=== PATIENT | female | born 1960 | race Caucasian/White ===

== ENCOUNTER 2018-06-13 08:59 | Emergency (ER) | payer BC ==
[~2018-06-13] VITALS: Ht 157.5 cm; Wt 97.1 kg
[~2018-06-13 08:59] MED LIST: BACTRIM DS TAB1 EACH PO; CARAFATE1 GM; CLONIDINE HCL0.1 MG PO; NORCO 5-325 TA1 EACH PO; PANTOPRAZOLE SO40 MG PO; PROTONIX20 MG; PROTONIX40 MG/ML; VESICARE5 MG PO; VICODIN 5-5001 EACH; ZOFRAN ODT4 MG
--- OUTSIDE RECORDS SUMMARY | 2018-06-13 09:03 | XMS REPORT | Clinical Summary ---
Author Author [facility] Organization [facility] Address Unknown Phone Unavailable Care Team Providers Care Drum Sander Offbearer Name Role Phone Provider, Unknown PCP Unavailable Allergies Comments Active Allergy Reactions Severity Noted Date MALIGNANT HYPERTHERMIA Anesthetics - Amide Type 03/07/2018 Povidone-Iodine 03/07/2018 STERI TAPE Other 03/07/2018 Medications End Date Status Medication Sig Dispensed Refills Start Date Active pantoprazole (PROTONIX) TAKE 1 TABLET 0 40 MG EC tablet ONCE A DAY 8 ORALLY Active cholecalciferol, vitamin Take 1,000 0 D3, (VITAMIN D3 ORAL) Units by mouth daily. 03/07/2019 Active desonide (DESOWEN) 0.05 % Apply 60 g 2 cream topically 2 8 (two) times a day. Active Problems Problem Noted Date Family history of breast cancer 03/07/2018 Breast mass 03/07/2018 Intertriginous candidiasis 03/07/2018 Encounters Care Team Description Date Type Specialty Daniel Orozco MD Well woman exam with routine gynecological exam (Primary Dx); Breast cancer screening; Screening for osteoporosis; Breast mass; Intertriginous candidiasis; Special screening examination for human papillomavirus (HPV) 03/07/2018 Office Visit Obstetrics and Gynecology after 06/12/2017 Family History Medical History Relation Name Comments Malig Hyperthermia Father Kidney cancer Maternal Grandfather Breast cancer Sister Relation Name Status Comments Father MALIG HYPERTHERMIA (Age 38) Maternal Grandfather (Age 85) Sister Alive ONSET AGE 40 Social History Date Tobacco Use Types Packs/Day Years Used Never Smoker Smokeless Tobacco: Never Used Alcohol Use Drinks/Week oz/Week Comments Yes 1 Glasses of 0.6 wine Sex Assigned at Date Recorded Not on file Industry Job Start Date Occupation Not on file Not on file Not on file Travel End Travel History Travel Start No recent travel history available. Last Filed Vital Signs Time Taken Vital Sign Reading 03/07/2018 10:24 AM CDT Blood Pressure 145/95 03/07/2018 10:24 AM CDT Pulse 60 - Temperature - - Respiratory Rate - - Oxygen Saturation - - Inhaled Oxygen - Concentration 03/07/2018 10:24 AM CDT Weight 101 kg (223 lb 9.6 oz) 03/07/2018 10:24 AM CDT Height 160 cm (5' 3") 03/07/2018 10:24 AM CDT Body Mass Index 39.61 Plan of Treatment Health Maintenance Due Date Last Done Comments CERVICAL CANCER SCREENING 1983 COLON CANCER SCREENING 2012 SHINGLES VACCINES ( of 2012 2) INFLUENZA VACCINE 01/19/2018 BREAST CANCER SCREENING 06/26/2018 06/26/2016 Procedures Comments Procedure Name Priority Date/Time Associated Diagnosis THINPREP TIS PAP Routine 03/07/2018 Well woman exam with 10:15 AM CDT routine gynecological exam after 06/12/2017 Results * THINPREP TIS PAP (03/07/2018 10:15 AM CDT) Specimen Swab Narrative Performed At Performing Organization Address City/State/Zipcode Phone Number EXTERNAL LAB NON-INTERFACED after 06/12/2017 Insurance Payer Benefit Subscriber ID Type Phone Address Plan / Group BCBS BCBS xxxxxxxxxxxx PPO CHOICE PPO/[place] PPO Advance Directives Patient has advance care planning documents on file. For more information, johnny lazcano contact: Rajesh Dodge [address] [place] [address]
--- NOTE | 2018-06-13 09:34 | Diagnostic Imaging Report ---
EXAMINATION: CXR 2 VIEW - HOPD INDICATION: Cough. Fever COMPARISON: None FINDINGS: TUBES and LINES: None. LUNGS: Lungs are well inflated. Perihilar peribronchial hazy opacity could be due to bronchitis. There is no evidence of pneumonia or pulmonary edema. PLEURA: No pleural effusion or pneumothorax. HEART AND MEDIASTINUM: The cardiomediastinal silhouette is unremarkable. BONES AND SOFT TISSUES: No acute osseous lesion. Soft tissues are unremarkable. UPPER ABDOMEN: No free air under the diaphragm. IMPRESSION: Perihilar peribronchial hazy opacity could be due to bronchitis. Signed by: Dr. Jerry Mina M.D. on 06/13/2018 9:31 AM
== END 2018-06-13 09:26 | disposition home or self-care (01) ==
LOC: FSED 08:59
DX: R05 Cough (principal); J20.8 Acute bronchitis due to other specified organisms
CPT/HCPCS: 71046; 99283

== ENCOUNTER 2022-10-17 11:02 | Emergency (ER) | payer OTHER, BC ==
[~2022-10-17] VITALS: Ht 162.6 cm; Wt 110.0 kg
[2022-10-17] MEDS ORDERED: VITAMIN D3250 MCG (11:36)
[2022-10-17] MEDS ORDERED: PROVENTIL HFA6.7 GM INH (12:27)
[2022-10-17] MEDS ORDERED: PREDNISONE20 MG PO (12:27)
[2022-10-17] MEDS ORDERED: ALBUTEROL/IPRATROPIUM 3 ML NEB ONE (12:30)
[2022-10-17] MEDS ORDERED: ALBUTEROL/IPRATROPIUM 3 ML NEB NEB ONE (12:30)
[2022-10-17] MEDS ORDERED: PREDNISONE 20 MG TAB PO ONE (12:30)
== END 2022-10-17 12:53 | disposition home or self-care (01) ==
LOC: FSED 11:19
DX: R05.9 Cough, unspecified (principal); J21.9 Acute bronchiolitis, unspecified; K21.9 Gastro-esophageal reflux disease without esophagitis; E66.9 Obesity, unspecified; Z20.822 Contact with and (suspected) exposure to COVID-19
CPT/HCPCS: 71046; 99283; J7512; U0002

== ENCOUNTER 2024-07-05 18:29 | Emergency (ER) | payer OTHER, BC ==
[~2024-07-05] VITALS: Ht 160 cm; Wt 105.0 kg
[~2024-07-05 18:29] MED LIST changes: +CLEOCIN HCL300 MG PO; +PREDNISONE20 MG PO; +PROVENTIL HFA6.7 GM INH; +VITAMIN D3250 MCG
[2024-07-05] MEDS ORDERED: CLOBETASOL1 EA/15 GM PO (18:55)
[2024-07-05 19:14] VITALS: PULSE 80; RESP 18; TEMP 97.7; O2SAT 100
== END 2024-07-05 19:14 | disposition home or self-care (01) ==
LOC: FSED 18:35
DX: R03.0 Elevated blood-pressure reading, without diagnosis of hypertension (principal); K21.9 Gastro-esophageal reflux disease without esophagitis; E66.9 Obesity, unspecified; Z87.442 Personal history of urinary calculi
CPT/HCPCS: 99283

== ENCOUNTER 2024-08-29 10:46 | Emergency (ER) | payer OTHER, BC ==
[~2024-08-29 10:46] MED LIST changes: +CLOBETASOL1 EA/15 GM PO
[2024-08-29 10:55] VITALS: PULSE 77; RESP 20; TEMP 100
[2024-08-29] MEDS ORDERED: PREDNISONE 10 MG TAB PO ONE (11:15)
[2024-08-29] MEDS: KETOROLAC TROMETHAMINE 30 MG/ML VIAL IV STA (11:52)
[2024-08-29] MEDS: ALBUTEROL/IPRATROPIUM 3 ML NEB NEB PRN (11:53)
[2024-08-29] MEDS: PREDNISONE 20 MG TAB PO ONE (11:53)
[2024-08-29] MEDS: SODIUM CHLORIDE 0.9% 1000ML 1,000 ML IV SCH (11:54)
[2024-08-29] MEDS ORDERED: ACETAMINOPHEN 325 MG TAB ONE (12:32)
[2024-08-29] MEDS: ACETAMINOPHEN 325 MG TAB PO ONE (12:35)
[2024-08-29] MEDS ORDERED: PREDNISONE50 MG PO (13:06)
[2024-08-29] MEDS ORDERED: VENTOLIN HFA18 GM INH (13:07)
[2024-08-29] MEDS: ALBUTEROL/IPRATROPIUM 3 ML NEB NEB ONE (13:29)
[2024-08-29 13:43] VITALS: BP 123/67; PULSE 72; RESP 18; TEMP 99; O2SAT 94
== END 2024-08-29 13:39 | disposition home or self-care (01) ==
LOC: FSED 10:54
DX: R05.9 Cough, unspecified (principal); J21.9 Acute bronchiolitis, unspecified; I10 Essential (primary) hypertension; K21.9 Gastro-esophageal reflux disease without esophagitis; F41.9 Anxiety disorder, unspecified; Z11.52 Encounter for screening for COVID-19
CPT/HCPCS: 0223U; 71046; 80053; 81003; 83518; 83880; 87400; 99283; J7512